=== PATIENT | female | born 1985 | race Caucasian/White ===

== ENCOUNTER 2019-09-13 10:43 | Emergency (ER) | payer SELFPAY ==
[~2019-09-13] VITALS: Ht 165.1 cm; Wt 83.9 kg
[2019-09-13 11:12] VITALS: BP 141/85; Ht 165.1 cm; Wt 83.9 kg
== END 2019-09-13 11:50 | disposition left against medical advice (07) ==
LOC: ED 10:43
DX: Z53.21 Procedure and treatment not carried out due to patient leaving prior to being seen by health care provider (principal)